=== PATIENT | male | born 1990 | race Caucasian/White ===

== ENCOUNTER 2023-11-01 09:16 | Emergency (ER) | payer SELFPAY ==
[~2023-11-01] VITALS: Ht 170.2 cm; Wt 83.9 kg
[2023-11-01] MEDS: KETOROLAC TROMETHAMINE INJ 60 MG/2 ML VIAL IM ONE (09:30)
[2023-11-01] MEDS: SILVER SULFADIAZINE CREAM 25 GM TUBE TP ONE (09:30)
[2023-11-01] MEDS ORDERED: SILVER SULFADIAZINE CREAM 25 GM TUBE ONE (09:39)
[2023-11-01] MEDS ORDERED: KETOROLAC TROMETHAMINE INJ 30 MG/ML VIAL ONE (09:47)
[2023-11-01 10:03] VITALS: BP 128/61; TEMP 98.7; O2SAT 100
== END 2023-11-01 10:04 | disposition home or self-care (01) ==
LOC: ER 09:43
DX: T21.26XA Burn of second degree of male genital region, initial encounter (principal); X12.XXXA Contact with other hot fluids, initial encounter; Y93.89 Activity, other specified; Y92.098 Other place in other non-institutional residence as the place of occurrence of the external cause; Y99.8 Other external cause status
CPT/HCPCS: 99283; 16000; 96372; J1885